=== PATIENT | female | born 1990 | race African-American/Black ===

== ENCOUNTER 2017-07-08 18:45 | Emergency (ER) | payer SELFPAY ==
[~2017-07-08] VITALS: Ht 157.5 cm; Wt 70.5 kg
[2017-07-08 19:58] VITALS: BP 100/63; PULSE 88; RESP 16; TEMP 99.4; O2SAT 100
[2017-07-08 20:27] LABS: BILIRUBIN, URINE NEG (NEG); BLOOD, URINE NEG (NEG); GLUCOSE,URINE NEG (NEG); KETONE, URINE 10 mg/dL (NEG); MUCUS URINE FEW /lpf (OCC); NITRITE,URINE NEG (NEG); PH, URINE 5.5 (5.0-8.5); SQUAMOUS EPITHELIAL CELL URINE 8 /hpf (0-5); URINE COLOR YELLOW (YELLW/STRAW); URINE LEUKOCYTE ESTERASE LARGE (NEG)
--- NOTE | 2017-07-08 21:44 | PD ---
HPI . Vaginal bleeding Chief Complaint: Related Problem Time Seen by Provider: 21:16 Travel History International Travel<30 days: No Contact w/Intl Traveler<30days: No Traveled to known affect area: No History of Present Illness HPI Patient is a 19-year-old female who is having nausea and feeling achy and took a home test it was positive. She said then June 21 she started having spotting on the toilet paper after urinating. She then says she has been noticing a strong odor emanating from her vagina when she takes a bath and she is worried she said she had no symptoms like this with her first 2 pregnancies she is having mild suprapubic tenderness the comes and goes it is a cramping like pain that comes irregularly she is not having the pain actively in the ER she has not seen her doctor for this she only found out she was 2 weeks ago and mainly she is coming in because she is worried about the odor from her vagina she has a slight discharge is not purulent she decided as white early past medical history is that she is anemia she has thalassemia [facility] Past Medical History Medical History: Denies Significant Hx Tetanus Vaccination: < 5 Years Influenza Vaccination: No ?: LMP: 04/28/17 : 4 Para: 2 Miscarriage: 1 Dilation and Curettage (D&C): Yes Social History Alcohol Use: Yes (rarely) Tobacco Use: No Substance Use: No Allergies-Medications (Allergen,Severity, Reaction): Coded Allergies: No Known Drug Allergies (Verified Allergy, Unknown, 07/08/17) Reported Meds & Prescriptions Reported Meds & Active Scripts Active Clindamycin (Clindamycin HCl) 300 Mg Cap 300 Mg PO BID Review of Systems Except as stated in HPI: all other systems reviewed are Neg Physical Exam Narrative GENERAL: Nontoxic appearing awake alert no obvious distress SKIN: Warm and dry. HEAD: Atraumatic. Normocephalic. EYES: Pupils equal and round. No scleral icterus. No injection or drainage. ENT: No nasal bleeding or discharge. Mucous membranes pink and moist. NECK: Trachea midline. No JVD. CARDIOVASCULAR: Regular rate and rhythm. RESPIRATORY: No accessory muscle use. Clear to auscultation. Breath sounds equal bilaterally. GASTROINTESTINAL: Abdomen mild tenderness suprapubic no distended. MUSCULOSKELETAL: Extremities without clubbing, cyanosis, or edema. No obvious deformities. NEUROLOGICAL: Awake and alert. No obvious cranial nerve deficits. Motor grossly within normal limits. Five out of 5 muscle strength in the arms and legs. Normal speech. PSYCHIATRIC: Appropriate mood and affect; insight and judgment normal. PELVIC frothy smelly fishy odor from the vaginal discharge thick and copious Data Data Last Documented VS Vital Signs Date Time Temp Pulse Resp B/P (MAP) Pulse Ox O2 Delivery O2 Flow Rate FiO2 07/08/17 19:58 99.4 88 16 100/63 (75) 100 Orders Orders Ed Urine Pregnancytest Poc (07/08/17 20:05) Urinalysis - C+S If Indicated (07/08/17 20:05) Us Pelvis (Ques Preg/Ectopic) (07/08/17 ) Beta Hcg (Quant/Titer) (07/08/17 21:46) Gc And Chlamydia Pcr (07/08/17 23:27) Wet Prep Profile (07/09/17 00:53) Clindamycin (Cleocin) (07/09/17 01:30) Ed Discharge Order (07/09/17 01:47) Labs Laboratory Tests Test 07/08/17 20:05 07/08/17 21:50 07/09/17 00:50 Urine Color YELLOW Urine Turbidity HAZY Urine pH 5.5 Urine Specific [place] 1.017 Urine Protein NEG mg/dL Urine Glucose (UA) NEG mg/dL Urine Ketones 10 mg/dL Urine Occult Blood NEG Urine Nitrite NEG Urine Bilirubin NEG Urine Urobilinogen LESS THAN 2.0 MG/DL Urine Leukocyte Esterase LARGE Urine WBC 4 /hpf Urine Squamous Epithelial Cells 8 /hpf Urine Mucus FEW /lpf Microscopic Urinalysis Comment CULT NOT INDICATED Human Chorionic Gonadotropin, Quant 06786 MIU/ML Clue Cells (Wet Prep) PRESENT Vaginal Trichomonas (Wet Prep) NONE SEEN Vaginal Yeast (Wet Prep) NONE SEEN MDM Medical Decision Making Medical Screen Exam Complete: Yes Emergency Medical Condition: Yes Differential Diagnosis Diagnosis includes bacterial vaginosis versus Trichomonas versus threatened versus missed AB versus GC chlamydia versus pelvic inflammatory disease Narrative Course Patient's ultrasound normal 8 weeks by crown-rump length patient's heart heart is 149 patient is reassured Diagnosis Primary Impression: Bacterial vaginosis Referrals: [facility] Patient Instructions: Bacterial Vaginosis (ED), General Instructions Additional Instructions: Take the clindamycin 300 mg capsule twice a day for 7 days follow-up in the [facility] information that was provided return to the ER for any worsening symptoms Scripts Clindamycin (Clindamycin) 300 Mg Cap 300 MG PO BID for Infection, #14 CAP 0 Refills Prov: Bhargav Tse MD 07/09/17 Disposition: 01 DISCHARGE HOME Condition: Good Bhargav Tse MD July 08, 2017 21:44
--- NOTE | 2017-07-08 23:13 | RADRPT ---
EXAM DATE: 07/08/2017 11:00 PM EDT AGE/SEX: 27 years / Female INDICATIONS: Bleeding. CLINICAL DATA: This is the patient's initial encounter. Patient reports that signs and symptoms have been present for 1 week and indicates a pain score of 1/10. MEDICAL/SURGICAL HISTORY: . Glasses. . Dilation and curettage. COMPARISON: No prior [facility] exams available for comparison. MEASUREMENTS: Uterus:__11.3 x 9.3 x 7.6 cm Endometrial Stripe:__>20 mm Right Ovary:__ 3.5 x 2.6 x 1.4 cm Left Ovary:__ 3.5 x 2.9 x 2.4 cm FINDINGS: Uterus: Yolk sac, gestational sac and pole seen within the uterine cavity. [place]-rump length 1 .43 cm corresponding to a gestational age of 7 weeks 5 days. No perceptible heart tones. Right Ovary: Measures Left Ovary: Measures Other: No free fluid. CONCLUSION: 1. Early intrauterine with suspected demise. 2. No other abnormalities are demonstrated. Patient declined transvaginal study. Electronically signed by: Hadley Goodwin MD 07/08/2017 11:12 PM EDT
[2017-07-09] MEDS ORDERED: CLIN300C5 PO (01:26)
[2017-07-09] MEDS ORDERED: CLINDAMYCIN 150 MG CAP PO ONE (01:30)
== END 2017-07-09 02:17 | disposition home or self-care (01) ==
LOC: NEPE 18:45
DX: O23.591 Infection of other part of genital tract in pregnancy, first trimester (principal); N76.0 Acute vaginitis; B96.89 Other specified bacterial agents as the cause of diseases classified elsewhere; Z3A.08 8 weeks gestation of pregnancy
CPT/HCPCS: 76700; 81001; 84702; 84703; 87210; 87491; 87591; 99284